=== PATIENT | female | born 1995 | race Caucasian/White ===

== ENCOUNTER 2021-04-19 08:29 | Emergency (ER) | payer OTHER, SELFPAY ==
[2021-04-19 08:40] VITALS: BP 123/80; PULSE 82; RESP 18; TEMP 36.8; O2SAT 100
--- NOTE | 2021-04-19 09:01 | ED.GENADULT ---
HPI - General Adult General Chief complaint: Shortness of Breath/Dyspnea Stated complaint: Asthma issues Time Seen by Provider: 04/19/21 08:50 Source: patient and RN notes reviewed Mode of arrival: ambulatory Limitations: no limitations History of Present Illness HPI narrative: Patient presents today complaining of a 2-month history of intermittent chest tightness and shortness of breath. These episodes typically last for approximately 10 minutes then resolve on their own. She did have one episode this morning that lasted for approximately 10 minutes. She is not currently shortness of breath or have any chest tightness. She has an appointment on April 29 to discuss these symptoms with her PCP. She is a family history of asthma, but no personal history. Denies any recent illness, but reports chronic allergy symptoms. She has tried no [id number]-[id number] treatment prior to arrival. MD complaint: Chest tightness, shortness of breath Related Data Home Medications Medication Instructions Recorded Confirmed norethindrone-e.estradiol-iron tablet 04/19/21 [06/20 (28)] Allergies Allergy/AdvReac Type Severity Reaction Status Date / Time No Known Allergies Allergy Verified 04/19/21 08:45 Review of Systems Review of Systems: CONSTITUTIONAL: Denies body aches, fever, chills, or sweats. EYES: Denies visual changes, redness, or discharge. ENT: Denies rhinorrhea, congestion, sore throat, or otalgia. CARDIOVASCULAR: Denies chest pain, palpitations, or edema. RESPIRATORY: Denies cough. + Intermittent chest tightness and shortness of breath GASTROINTESTINAL: Denies abdominal pain, nausea, vomiting, or diarrhea. GENITOURINARY: Denies dysuria or hematuria. SKIN: Denies rash, itching, or wounds. MUSCULOSKELETAL: Denies back pain, joint pain, or myalgia. NEUROLOGIC: Denies headache, numbness, tingling, or weakness. PSYCH: Denies depression or anxiety. PMFSH Comments At time of signature, I have reviewed and agree with nursing past medical, surgical, social and family history unless otherwise noted. Please see nursing chart for further information. There is no relevant family history pertinent to the presenting complaint Exam Narrative: GENERAL: Well-appearing, well-nourished, and in no acute distress. HEAD: Normocephalic, atraumatic. EYES: EOMI. No redness or drainage. Conjunctivae normal. ENT: Mucous membranes pink and moist. Nares clear. No rhinorrhea. TMs normal bilaterally. Throat normal. Uvula midline. NECK: Normal AROM. Supple. No lymphadenopathy. CHEST: No respiratory distress. Clear to auscultation. HEART: Regular rate and rhythm. No murmur appreciated. Normal peripheral pulses. EXTREMITIES: Normal range of motion. No edema. SKIN: Warm, dry, no rash. Capillary refill normal. Normal skin turgor. NEURO: No focal deficits. Alert and oriented x3. Gait steady. PSYCH: Normal affect. No signs of depression or anxiety. Course Vital Signs Vital signs: Vital Signs Temperature 98.3 F 04/19/21 08:40 Pulse Rate 82 04/19/21 08:40 Respiratory Rate 18 04/19/21 08:40 Blood Pressure 123/80 04/19/21 08:40 Pulse Oximetry 100 04/19/21 08:40 Temperature 98.3 F 04/19/21 08:40 Pulse Rate 82 04/19/21 08:40 Respiratory Rate 18 04/19/21 08:40 Blood Pressure 123/80 04/19/21 08:40 Pulse Oximetry 100 04/19/21 08:40 Reviewed. Pt has been instructed to follow up with her PCP regarding her elevated blood pressure today. Medical Decision Making Differential Diagnosis Differential Diagnosis: Asthma, panic attack Vital Signs Vital Signs: Vital Signs Temperature 98.3 F 04/19/21 08:40 Pulse Rate 82 04/19/21 08:40 Respiratory Rate 18 04/19/21 08:40 Blood Pressure 123/80 04/19/21 08:40 Pulse Oximetry 100 04/19/21 08:40 Temperature 98.3 F 04/19/21 08:40 Pulse Rate 82 04/19/21 08:40 Respiratory Rate 18 04/19/21 08:40 Blood Pressure 123/80 04/19/21 08:40 Pu
== END 2021-04-19 09:45 | disposition home or self-care (01) ==
PROVIDERS: Emergency Provider Nurse Practitioner; PCP Family Medicine
DX: R06.02 Shortness of breath (principal)
CPT/HCPCS: 99213; G0463

== ENCOUNTER → 2022-03-25 12:45 | Outpatient (CLI) | payer OTHER, SELFPAY ==
--- NOTE | ~2022-03-25 | US_ITS ---
EXAMINATION: US OB transvaginal DATE: 03/25/2022 13:18 INDICATION: Left lower quadrant pain TECHNIQUE: Real-time transvaginal obstetrical ultrasound. FINDINGS: No prior studies for comparison. The uterus measures 9.7 x 6.4 x 7.1 cm. There is an intrauterine gestational sac, with pole neeta ntified. The crown rump length measures 1.66 cm, which correlates with a estimated gestational age o f 8 weeks 0 days. heart tones are identified measuring 174 BPM. The right ovary is not visual ized. The left ovary is within normal limits. IMPRESSION: 1. SL IUP with an EGA of 8 weeks, 0 days (EDC by current ultrasound of 11/04/2022). Reviewed, dictated and finalized at location B. IMPRESSION: 1. SL IUP with an EGA of 8 weeks, 0 days (EDC by current ultrasound of 11/05/19 23).
== END ==
PROVIDERS: PCP Family Medicine; Visit Provider Advanced Practice Midwife
DX: R10.32 Left lower quadrant pain (principal); Z3A.08 8 weeks gestation of pregnancy
CPT/HCPCS: 76817

== ENCOUNTER → 2022-06-03 11:34 | Outpatient (CLI) | payer OTHER, SELFPAY ==
--- NOTE | ~2022-06-03 | US_ITS ---
EXAMINATION: US OB /maternal detail DATE: 06/03/2022 12:31 INDICATION: Encounter for screening, unspecified. TECHNIQUE: Real-time ultrasound of the pelvis was performed. COMPARISON: Ultrasound 03/25/2022 FINDINGS: There is a single living fetus in breech presentation. The placenta is posterior, 6.1 cm from the ce rvix. heart rate is 159 beats per minute (bpm). The amniotic fluid volume is subjectively nicolette l. The cervical length is normal on transabdominal images. The following biometric data were obtained: Biparietal diameter (BPD): 4.4 cm; head circumference (HC): 16.2 cm; abdominal circumference (AC): 13 .2 cm; femur length (FL): 2.6 cm. These measurements are concordant. Estimated weight is 239 g +/- 36 g, which correlates with the 72nd percentile when 11/04/22 is us ed as estimated date of delivery. As single measurements, these parameters are each equal to the following estimated gestational ages: BPD: 19 weeks 2 days. HC: 19 weeks 0 days. AC: 18 weeks 5 days. FL: 18 weeks 0 days. estimated gestational age based solely on measurements from this exam is 18 weeks 5 days +/- 1 weeks 2 days. The cerebral ventricles, cerebellum, cisterna magna, nuchal fold, and visualized portions of the spin e are normal. The heart is normal. The diaphragm, stomach, kidneys, and bladder are normal. There are two umbilical arteries to yield a 3-vessel cord. The cord insertion is normal. IMPRESSION: 1. Single living fetus in breech presentation. 2. Estimated weight is 239 g +/- 36 g, which correlates with the 72nd percentile when 11/04/22 i s used as estimated date of delivery. This date was set by ultrasound on 03/25/2022. 3. Normal anatomic survey. Reviewed, dictated and finalized at location A. P CARE WORKER IMPRESSION: 1. Single living fetus in breech presentation. 2. Estimated weight is 239 g +/- 36 g, which correlates with the 72nd pe rcentile when 11/04/22 is used as estimated date of delivery. This date was set b y ultrasound on 03/25/2022. 3. Normal anatomic survey.
== END ==
PROVIDERS: PCP Family Medicine; Visit Provider Obstetrics & Gynecology Gynecology
DX: Z36.9 Encounter for antenatal screening, unspecified (principal)
CPT/HCPCS: 76805

== ENCOUNTER 2022-11-04 21:50 | Inpatient (IN) | payer OTHER, SELFPAY ==
[2022-11-04 22:00] VITALS: TEMP 36.8
[2022-11-05] VITALS (54 sets, daily range): BP systolic 82–160; BP diastolic 29–98; PULSE 81–142; RESP 18; TEMP 36.6–37.1; O2SAT 97–100; BMI 33.3
--- NOTE | 2022-11-05 00:12 | LDADM ---
This patient, Evita Glass, was admitted to Labor/Delivery/Recovery 108 on 11/04/22 at 21:50. Plans for labor, pain management and were discussed with patient. Patient/family oriented to hospital policies and general routines including ID bracelet, bed and alarms, visiting hours, pain management, procedures, bathroom and other care routines, personal items, smoking policy, room service/diet and guest tray routines, security routines, and visiting hours. Patient/Family are encouraged to report perceived risks to care and to ask questions if they do not understand what they are told or what they should do. See OBIX for further documentation.
[2022-11-05 00:34] LABS: Basophils Percent Auto 0.2 % (0.2-1.2); Eosinophils Absolute Auto 0.1 K/mm3 (0-0.3); Eosinophils Percent Auto 1.1 % (0-4.4); Hematocrit 38.9 % (37.0-47.0); Hemoglobin 13.1 g/dL (12.0-15.0); Immature Granulocyte Absolute 0.08 K/mm3 (0.00-0.031); Immature Granulocyte Percent A 0.7 % (0-0.5); Lymphocytes Absolute Auto 2.05 K/mm3 (0.9-3.2); Lymphocytes Percent Auto 18.8 % (18.3-44.2); Mean Corpuscular HGB Conc 33.7 g/dl (32-36); Mean Corpuscular Hemoglobin 32.3 pg (26-34); Mean Platelet Volume 9.4 fl (7.4-10.4); Monocytes Absolute Auto 0.6 K/mm3 (0.1-0.6); Monocytes Percent Auto 5.2 % (2.6-8.5); Neutrophils Absolute Auto 8.1 K/mm3 (1.3-6.7); Platelet Count Result 246 k/mm3 (150-375); Red Blood Count 4.05 M/mm3 (4.2-5.4); Red Cell Distribution Width 14.3 % (11.5-14.5); White Blood Count 10.9 K/mm3 (4.5-10.0)
[2022-11-05] MEDS: LACTATED RINGERS 1,000 ML 125 ML IV CONT ×2 (03:02→10:09)
[2022-11-05] MEDS: OXYTOCIN 30 UNITS/NS 500 ML 30 UNITS/500 ML BAG IV CONT (03:07)
--- NOTE | 2022-11-05 10:19 | WPDANESEPP ---
Anes - Eval Pre Procedure Procedure: labor epidural Date/Time: 11/05/22 10:19 Surgeon: yomi Preop Diagnosis: pain during labor Pre Op Diagnosis: SROM Patient Data Age: 27 Gender: F Height: 1.73 m Weight: 99.54 kg Last Vital Signs Temp 36.6 C 11/05/22 05:30 Pulse 107 H 11/05/22 10:00 BP 160/98 H 11/05/22 10:00 Pulse Ox 98 11/05/22 10:09 O2 Del Method Room Air 11/05/22 00:10 Allergies Allergy/AdvReac Type Severity Reaction Status Date / Time No Known Allergies Allergy Verified 04/19/21 08:45 Home Medications Medication Instructions Recorded Confirmed Type albuterol sulfate 90 mcg/actuation 2 puff inhalation Q4-6H PRN 04/19/21 11/05/22 Rx aerosol inhaler (ProAir HFA) shortness of breath or wheezing #18 grams inhalational spacing device #1 ea 04/19/21 Rx (BreatheRite MDI Spacer) vit no.95-ferrous 1 tablet PO DAILY 10/06/22 11/05/22 History fumarate 28 mg-folic acid 800 mcg tablet () Laboratory Tests 11/04/22 22:50 WBC 10.9 H K/mm3 (4.5-10.0) RBC 4.05 L M/mm3 (4.2-5.4) Hgb 13.1 g/dL (12.0-15.0) Hct 38.9 % (37.0-47.0) MCV 96.0 fl (80-100) MCH 32.3 pg (26-34) MCHC 33.7 g/dl (32-36) RDW 14.3 % (11.5-14.5) Plt Count 246 k/mm3 (150-375) MPV 9.4 fl (7.4-10.4) Immature Gran % (Auto) 0.7 H % (0-0.5) Neut % (Auto) 74.0 H % (45.5-73.1) Lymph % (Auto) 18.8 % (18.3-44.2) [place] % (Auto) 5.2 % (2.6-8.5) Eos % (Auto) 1.1 % (0-4.4) Baso % (Auto) 0.2 % (0.2-1.2) Lymph # (Auto) 2.05 K/mm3 (0.9-3.2) [place] # (Auto) 0.6 K/mm3 (0.1-0.6) Eos # (Auto) 0.1 K/mm3 (0-0.3) Baso # (Auto) 0.0 K/mm3 (0.0-0.1) Abs Immat Gran (auto) 0.08 H K/mm3 (0.00-0.031) Absolute Neuts (auto) 8.1 H K/mm3 (1.3-6.7) Absolute Nucleated RBC 0.0 K/mm3 (0.0-0.012) Nucleated RBC % 0.0 % (0.0-0.2) RPR Pending Blood Type O Positive Antibody Screen Negative Patient hx anesthesia problems: none Family hx anesthesia problems: none Results Review: All pre-operative results and documents have been reviewed as part of the pre-operative evaluation. [facility] Past Medical History Medical History (Updated 11/05/22 @ 10:20 by Monica Orozco CRNA) Asthma Intrauterine Family History Family History (Updated 10/06/22 @ 13:24 by David Cates RN) Mother Lupus Father Heart disease Diabetes mellitus Social History Social History Smoking status: Former smoker Tobacco type: e-cigarettes/vaping Substance use: never Lack of Transportation: No Lack of Food: Never True Current Housing: I Have Housing Concerned About Future Housing: No Difficulty Paying Gas/Electric Bills: No Difficulty Paying for Meds: No Currently Unemployed: No Education: Associate Degree Difficulty w/ Childcare or Family Care: No Spiritual care concerns: No Exam Day of Procedure 11/05/22 10:19
--- NOTE | 2022-11-05 11:18 | PM.OBPRVD ---
OB - Delivery Note Procedure Delivery date: 11/05/22 Procedure: Induction method: None Delivery monitor: External FHT and External Uterine Route of delivery: Episiotomy description: None Laceration Description: Superficial (1st degree, hemostatic. No repair required. ) Specimen: No Quantitative Blood Loss (ml): 150 Anesthesia type: Epidural Disposition: Floor Narrative: Patient arrived after spontaneous rupture of membranes. She labored overnight and made minimal cervical change and Pitocin was started. She quickly progressed to complete dilation and pushed with contractions. She brought the head to a full crown and delivered over an intact perineum. there was fair restitution of the head. A moderately tight nuchal cord was noted. There was easy delivery of the anterior-posterior shoulders, and the remainder of the infant was delivered in a somersault fashion. The infant was placed on the maternal abdomen and dried and stimulated by nursery staff. After 1 minute of life the cord was doubly clamped and cut. Cord blood, cord segment, and cord gases were obtained. There was excellent hemostasis. Mother and baby skin to skin in the delivery room Baby Date of : 11/05/22 Time of : 10:59 Weeks of gestation at delivery: 39 gender: Male Weight (pounds): 8 Weight (ounces): 2 presentation: vertex position: Right Occiput Anterior Placenta delivery description: Spontaneous Cord Vessel Description: 3 Vessels, Nuchal Cord, Tight, Clamped/Cut and Delayed Cord Clamping score one minute: 8 score five minutes: 9
--- NOTE | 2022-11-05 11:24 | PM.OBDSVD ---
DS: Admitting Diagnosis Discharge Date 11/06/2022 Admitting Diagnosis 27 y.o. at 39 weeks Spontaneous rupture of membranes Labor at term. DS: Discharge Diagnosis Discharge Diagnosis (1) (normal spontaneous vaginal delivery): Code(s): O80 - Encounter for full-term uncomplicated delivery Status: Acute (2) Mother currently breastfeeds: Status: Acute OB - DS: Summary Hospital Course Hospital Course: Uncomplicated OB Procedures : Ultrasound OB Procedures Intrapartum: Spontaneous Vag Delivery OB Procedures: : None Peripartum Data Delivery Method: Natural Vaginal Laceration Description: Periurethral Episiotomy description: None complications: none Time Spent with Patient Time attestation: Total time spent providing and/or coordinating discharge services: DS: Data Data Completed and Pending Labs on day of discharge: Labs from last 24 hours 11/04/22 22:50 WBC 10.9 H RBC 4.05 L Hgb 13.1 Hct 38.9 MCV 96.0 MCH 32.3 MCHC 33.7 RDW 14.3 Plt Count 246 MPV 9.4 Immature Gran % (Auto) 0.7 H Neut % (Auto) 74.0 H Lymph % (Auto) 18.8 [place] % (Auto) 5.2 Eos % (Auto) 1.1 Baso % (Auto) 0.2 Lymph # (Auto) 2.05 [place] # (Auto) 0.6 Eos # (Auto) 0.1 Baso # (Auto) 0.0 Abs Immat Gran (auto) 0.08 H Absolute Neuts (auto) 8.1 H Absolute Nucleated RBC 0.0 Nucleated RBC % 0.0 RPR Pending Blood Type O Positive Antibody Screen Negative Discharge Plan Discharge Attending physician on discharge: Corry Jarquin Consulting providers: Meagan Ayon; Monica Orozco; Ava Quinn Discharging Clinician: Corry Jarquin Anticipated Discharge Date/Time: 11/06/22 16:22 Patient Disposition: Home, Self-Care Activity: no shower Diet: as tolerated Discharge Instructions: Education: Mom and Baby Guide Given to: Mother Follow-Up: Call your delivering provider's office for an appointment to be seen in: 6 Weeks Mom [facility] follow-up [facility]. Appointment Date/Time: November 07, 2022 at 3:30 am What to expect at your follow-up visit: Blood Pressure Check Call [phone] if you are unable to keep your appointment time. BREAST CARE: * Wear a snug supportive bra. * For engorgement discomfort: Breast Feeding: * Apply warm moist washcloths * Express milk as needed to relieve engorgement * Wear loose clothing Bottle Feeding: * May apply ice packs * For sore nipples: * Identify correct latch-on * Apply warm moist washcloths before and after nursing * Air dry nipples after nursing * May apply Lansinoh cream to nipples /PERINEAL CARE: * Until bleeding stops, use your juanita bottle after urinating * Change your pad frequently throughout the day * You may take sitz baths several times a day (fill your bathtub with warm water and soak for 20 minutes.) Do NOT bathe in the water * No tub baths until seen by your physician - You may shower ACTIVITY: * Rest as much as possible. * Do not exercise or lift anything heavier than your baby (such as laundry or other children.) * Avoid stairs or driving as much as possible. * Do not put anything into the vagina. No douching, tampons, or sexual activity until seen by physician. NOTIFY PHYSICIAN IF YOU HAVE ANY QUESTIONS OR IF ANY OF THE FOLLOWING SYMPTOMS OCCUR: * If your perineum becomes red, swollen, or more painful than what you have experienced in the hospital. * If your vaginal bleeding becomes foul smelling. * If your vaginal bleeding becomes more heavy than a period or if your bleeding changes from pink to bright red. However, you may pass an occasional walnut-sized clot once or twice for the first week . * If you experience a sharp, shooting pain in you calves. * If you discover a hard, reddened area on
[2022-11-05] MEDS: OXYTOCIN 30 UNITS/NS 500 ML 30 UNITS/500 ML BAG 125 UNITS IV CONT (11:35)
--- NOTE | 2022-11-05 14:00 | OBPPTRN ---
Patient transferred to post room #291 via wheelchair. Support person present. Oriented to unit, room, information board, rooming in, admission packet and security measures. Patient verbalizes understanding.
[2022-11-06 00:15] VITALS: BP 134/86; PULSE 97; RESP 16; TEMP 36.6; O2SAT 98
[2022-11-06 05:29] LABS: Hematocrit 39.2 % (37.0-47.0); Hemoglobin 13.1 g/dL (12.0-15.0)
[2022-11-06 07:35] VITALS: BP 116/81; PULSE 94; RESP 18; TEMP 36.2; O2SAT 99
--- NOTE | 2022-11-06 07:36 | PM.OBPNVD ---
OB - PN: Subj Subjective Date/time seen: 11/06/22 07:36 Patient comments: no complaints and pain well controlled baby status: doing well OB - PN: Obj Data Labs 11/06/22 05:17 Labs: Laboratory Results - last 24 hr 11/06/22 05:17 Hgb 13.1 Hct 39.2 OB - PN A/P Plan day: 1 Plan: routine care and other (plans oc's) Time Spent With Patient Time: Total time spent is greater than 50% in coordination of care (as documented) at patient's floor/unit and/or counseling patient: Exam : Bimanual exam- vagina & uterus: other (Uterus firm, nt @U)
[2022-11-06] MEDS: IBUPROFEN 600 MG TABLET PO (07:53)
[2022-11-06] MEDS: MULTIVIT/MIN/PREN/FOL AC/IRON TABLET 1 TAB PO (07:53)
[2022-11-06] MEDS: LANOLIN (LANSINOH) 7.5 GM CREAM 1 APPLIC TOPICAL (07:58)
--- NOTE | 2022-11-06 08:05 | WPDANLDPN2 ---
Anes-Prog Note L&D Date/Time: 11/06/22 08:05 Neuro status: Neuro function grossly intact. Vital Signs: Last Vital Signs Temp 36.6 C 11/06/22 00:15 Pulse 97 11/06/22 00:15 Resp 16 11/06/22 00:15 BP 134/86 11/06/22 00:15 Pulse Ox 98 11/06/22 00:15 O2 Del Method Room Air 11/05/22 14:00 Pain score (VAS): 0 Patient feedback: Patient satisfied with anesthetic care.
[2022-11-06 10:04] LABS: Rapid Plasma Reagin Non-Reactive (NonReactive)
--- NOTE | 2022-11-06 11:56 | PC.NURSE ---
[id number] Purposefully rounded to assess needs. Feeding sheet is visualized with minimal feeding through the night. Mother is attempting to latch with no success related to sleeping. Mother received the offer of assistance and was burped twice and stimulated to wake and breastfeed. Infant is sleepy and reluctant. Mother demonstrated the skill of hand expression and RN spoon fed 2 tsp of colostrum. Infant is reluctant to stick the tongue out to lap the milk off of the spoon. It took several attempts to encourage infant to suck on a gloved finger, and when he did so it was a weak suck. When infant was placed at the breast he would open his mouth and hold the nipple in his mouth and not make a teat or effectively breastfeed at all. has not had adequate intake or output in the last 24 hours and it was recommended that mother not take the home today. Educated mother on on demand with guidelines of every 2-3 hours allowing to swallow at the breast regularly and not to go more than 4 hours without feeding only once in a 24 hour period. The lower frenulum is visualized as somewhat tight and did not demonstrate extending past the gumline during this consult. Reported to the Primary RN.
--- NOTE | 2022-11-06 15:30 | PC.NURSE ---
PT introductions made and plan of care discussed per post , pain management, breast feeding, daily care activities and pending discharge to home. PT and spouse both recipients of such instructions and no barriers to learning identified at this time. PT and spouse both verbalized that they were told they could go home and wanted to talk to senior storage engineer regarding discharge. All the criteria that had been originally established prior to discharge had been met. Discussed and answered questions regarding the delay and the necessary components to discharge ie feeding well and voiding and stooling. PT and spouse both received instructions via one to one discussion, mom baby care guide and demonstrations. Both verbalized understanding and that every attempt to be discharged per senior storage engineer would be initiated.
--- NOTE | 2022-11-06 15:49 | PC.NURSE ---
[id number] Purposefully rounded to assess needs. Mother has effectively on the right breast without pain. Mother is confident and reassured. Mother led the conversation with her experience and plan to feed her so far and her ability to independently latch infant optimally without discomfort and to supplement if needed. Reminded mother to use good handwashing technique to prevent infection. has had adequate feedings in the last 24 hours meets the outcomes for weight, output and jaundice at this time. Mother states she is confident to continue effectively breastfeed her at home, when to call for assistance and denies any additional assistance or education at this time. Reinforced understanding of milk production, transition of milk, signs of adequate intake, transition of stool, prevention/relief of engorgement, responsive watching for feeding cues, the different methods of stimulating to breastfeed 2-3 hours after the start of the last feeding, community resources (mother is friends with Anh peer at the [employer] office, and when to call a provider using the resource of the feeding sheet, business card, mom and baby guide. Mother voiced understanding of the education shared. Reported to the primary RN.
[2022-11-06 16:19] VITALS: BP 116/81; PULSE 94; RESP 18; TEMP 36.2; O2SAT 99
--- NOTE | 2022-11-06 16:55 | PC.NURSE ---
PT received discharge instructions per protocol and verbalized understanding of such care. PT discharged to home ambulatory accompanied by spouse and and taken to waiting car. Follow up appts confirmed
== END 2022-11-06 16:55 | disposition home or self-care (01) | DRG 807 ==
LOC: ANHLDR 11-05 11:26 → ANHOB2 11-05 14:25
PROVIDERS: Advanced Practice Midwife; Admitting Provider Obstetrics & Gynecology Gynecology; PCP Family Medicine; Visit Provider Obstetrics & Gynecology Gynecology
DX: O69.1XX0 Labor and delivery complicated by cord around neck, with compression, not applicable or unspecified (principal); Z37.0 Single live birth; O70.0 First degree perineal laceration during delivery; Z3A.39 39 weeks gestation of pregnancy
CPT/HCPCS: 36415; 85014; 85018; 85025; 86592; 86850; 86900; 86901; A9270; J2590; J2795; J7120

== ENCOUNTER 2023-02-11 17:57 | Emergency (ER) | payer OTHER, SELFPAY ==
[2023-02-11 18:02] VITALS: BP 135/70; PULSE 92; RESP 16; TEMP 36.4; O2SAT 100
--- NOTE | 2023-02-11 18:20 | ED.EXTPRO ---
HPI - Extremity Problem General Chief complaint: Extremity Problem,Nontraumatic Stated complaint: Left Wrist Pain Source: patient and RN notes reviewed History of Present Illness HPI Narrative: 27 yo F presents to urgent care with complaints of left radial side wrist pain. Pt states this has been going on for about 10 days but the last couple days the pain has increased. Pt states she is 3 months post . Pt denies any injury or trauma. Does report some tingling in her left thumb. Denies any fevers or chills. Pt has taken 400 mg of ibuprofen x 1 without relief. Related Data Home Medications Medication Instructions Recorded Confirmed norethindrone (contraceptive) 0.35 0.35 mg PO DAILY 02/11/23 02/11/23 mg tablet vits 75-iron 28 mg-folic See Rx Instructions .Route .COMPLEX 02/11/23 02/11/23 acid 800 mcg-omega3 440 mg oral pack Allergies Allergy/AdvReac Type Severity Reaction Status Date / Time No Known Allergies Allergy Verified 02/11/23 18:14 Review of Systems Review of Systems: CONSTITUTIONAL: Denies fever, chills, or sweats. EYES: Denies visual changes, redness, or discharge. ENT: Denies otalgia and sore throat CARDIOVASCULAR: Denies chest pain, palpitations, or edema. RESPIRATORY: Denies cough or dyspnea. GASTROINTESTINAL: Denies abdominal pain, nausea, vomiting, or diarrhea. GENITOURINARY: Denies dysuria or hematuria. SKIN: Denies rash or itching. MUSCULOSKELETAL: Denies back pain, joint pain, or myalgia. NEUROLOGIC: Denies headache, numbness, or weakness. Pertinent positives per HPI. [facility] Past Medical History Medical History (Updated 02/11/23 @ 18:28 by Blanca Prasad APRN) Asthma Intrauterine Family History Family History (Updated 10/06/22 @ 13:24 by David Cates RN) Mother Lupus Father Heart disease Diabetes mellitus Social History Social History (Reviewed 04/19/21 @ 09:08 by Kate Viera, [facility], [place], ) Smoking status: Former smoker Tobacco type: e-cigarettes/vaping Substance use: never Lack of Transportation: No Lack of Food: Never True Current Housing: I Have Housing Concerned About Future Housing: No Difficulty Paying Gas/Electric Bills: No Difficulty Paying for Meds: No Currently Unemployed: No Education: Associate Degree Difficulty w/ Childcare or Family Care: No Spiritual care concerns: No Comments At the time of my signature, I reviewed and agree with the nursing past medical, surgical, social, and family history. There is no relevant family history pertinent to the patient complaint. Exam Narrative: GENERAL: This is a well-nourished, well-developed patient, in no apparent distress. HEAD: normocephalic, atraumatic. EYES: Sclera clear/white. Vision is grossly intact. EARS: External ears normal, auditory canals clear and without drainage. Hearing grossly intact. NOSE: External nose normal with no obvious nasal discharge, nares without redness, no rhinorrhea. THROAT: Mucous membranes moist, posterior pharynx clear. NECK: Neck supple, non-tender without lymphadenopathy, masses or thyromegaly. CARDIOVASCULAR: Regular rate RESPIRATORY: No respiratory distress. SKIN: warm, intact with no suspicious lesions or rash, good texture and turgor. NEURO: awake, alert, and oriented to person, place and time. There were no obvious focal neurologic abnormalities. EXTREMITIES: Tenderness to radial side of left wrist. + Hemanth test. Course Course Level of Care: Express Care Visit Vital Signs Vital signs: Vital Signs Temperature 97.6 F 02/11/23 18:02 Pulse Rate 92 02/11/23 18:02 Respiratory Rate 16 02/11/23 18:02 Blood Pressure 135/70 02/11/23 18:02 Pulse Oximetry 100 02/11/23 18:02 Oxygen Delivery Room Air 02/11/23 18:02 Temperature 97.6 F 02/11/23 18:02 Pulse Rate 92 02/11/23 18:02 Respiratory Rate 16 02/11/23 18:02 Blood Pressure 135/70 02/11/23 18:02 Pulse Ox
== END 2023-02-11 18:30 | disposition home or self-care (01) ==
PROVIDERS: Emergency Provider Nurse Practitioner Family; PCP Family Medicine
DX: M65.4 Radial styloid tenosynovitis [de Quervain] (principal); J45.909 Unspecified asthma, uncomplicated
CPT/HCPCS: 99212; G0463